=== PATIENT | female | born 1990 | race Caucasian/White ===

== ENCOUNTER 2020-05-09 14:35 | Outpatient (CLI) | payer BC, SELFPAY ==
--- NOTE | ~2020-05-09 | US_ITS ---
EXAMINATION: US OB /maternal detail DATE: 05/09/2020 15:57 INDICATION: survey TECHNIQUE: Multiple obstetric sonographic images performed. FINDINGS: No prior studies for comparison. There is a single living fetus in variable presentation. The placenta is anterior without placenta p revia. Amniotic fluid volume is normal. JUAN measures 15.5 cm. cardiac activity and movement is noted with a heart rate of 155 beats per minute. The following anatomy was identified as normal: 4 chamber heart 3 vessel cord cord insertion kidneys urinary bladder stomach spine diaphragm ventricles cisterna magna cerebellum The following biometric data were obtained: BPD: 43mm corresponds to gestational age 19 weeks 0 days. Head circumference: 166 mm corresponds to gestational age 19 weeks 2 days. Abdominal circumference: 145 mm corresponds to gestational age 19 weeks 6 days. Femur length: 30 mm corresponds to gestational age 19 weeks 3 days. Head circumference to abdominal circumference ratio: 1.14 (normal range for expected gestational age is 1.08-1.26). Estimated weight: 301 grams +/- 45 grams using Hadlock method. IMPRESSION: 1: Single living intrauterine with an estimated gestational age of 19weeks 3days by current ultrasound measurements, with an EDC of 09/30/2020 in variable presentation. 2. Normal survey. Reviewed, dictated and finalized at location A. [employer] IMPRESSION: 1: Single living intrauterine with an estimated gestational age of 19 weeks 3days by current ultrasound measurements, with an EDC of 09/30/2020 in va riable presentation. 2. Normal survey.
== END 2020-05-09 14:36 | disposition home or self-care (01) ==
PROVIDERS: PCP Physician Assistant; Visit Provider Obstetrics & Gynecology
DX: Z36.9 Encounter for antenatal screening, unspecified (principal); Z3A.19 19 weeks gestation of pregnancy
CPT/HCPCS: 76805